=== PATIENT | male | born 1960 | race Caucasian/White ===

== ENCOUNTER → 2020-06-10 10:10 | Outpatient (REF) | payer MEDICARE, MEDICAID, SELFPAY ==
--- NOTE | 2020-06-10 10:16 | CA_ITS ---
Transthoracic Echocardiogram Patient (Last, First, Middle): Rc Wilson J Gender: Male Date of : 1960 Age: 60 Procedure Date: 06/10/2020 Procedure Type: Transthoracic Echocardiogram Location: OP Height: 175.26 cm Weight: 84.99 kg BSA: 2.01 m2 Heart Rate: bpm BP: 146 / 56 mmHg Echocardiography Tech: Referring MD: Diogo Rachel MD Symptoms: I50.9 - Heart failure, unspecified Study Quality: Good ECG Rhythm: Undetermined Conclusions: - The left ventricular systolic function is mildly decreased. The visually estimated ejection fraction is between 45-50%. - The left atrium is severely dilated. - There is moderate mitral annular calcification. There is mild mitral valve regurgitation. - There is mild tricuspid valve regurgitation. - Small generalized pericardial effusion but posterior to the left ventricle, moderate in size. Findings Procedure Information The patient declines contrast. Left Ventricle Normal left ventricular cavity size. There is moderately increased left ventricular wall thickness. The left ventricular systolic function is mildly decreased. The visually estimated ejection fraction is between 45-50%. There is mild global hypokinesis. Diastolic function is indeterminate on the basis of available data. Right Ventricle Normal right ventricular cavity size and systolic function. Atria The left atrium is severely dilated. The right atrium is normal in size. Aortic Valve There is a normal trileaflet aortic valve. There is no aortic valve stenosis. There is trace (trivial) aortic valve regurgitation. Mitral Valve There is moderate mitral annular calcification. There is mild mitral valve regurgitation. There is no mitral valve stenosis. Pulmonic Valve The pulmonic valve was not well visualized. There is trace pulmonic valve regurgitation. Tricuspid Valve Normal tricuspid valve structure. There is mild tricuspid valve regurgitation. The pulmonary artery systolic pressure is normal. Great Vessels The aortic annulus, sinuses of valsalva, asc aorta, and aortic arch are normal in size. Venous The inferior vena cava is normal in size and collapses greater than 50% with inspiration. Pericardium/Pleural There are no definitive echocardiographic findings of tamponade physiology. Small generalized pericardial effusion but posterior to the left ventricle, moderate in size. Prior Study Comparison Changes noted compared to prior study dated: 01/03/2020. Slight increase in size of pericardial effusion. Measurements 2D Linear Measurements RVIDd: 3.36 RVIDd Index: 1.67 IVSd: 1.45 0.6-0.9/0.6-1.0 cm LVIDd: 5.24 3.9-5.3/4.2-5.9 cm LVIDd Index: 2.61 2.4-3.2/2.2-3.1 cm/m2 LVIDs: 3.62 2.0-3.6 cm LVPWd: 1.44 0.7-1.1 cm Ao Root: 3.40 2.1-3.5 cm LA Diam: 4.70 2.7-3.8/3.0-4.0 cm LAIDs Index: 2.34 1.5-2.3 cm/m2 LV Mass: 409.23 67-162/88-224 g LV Mass Index: 203.60 43-95/49-115 g/m2 LVOT Diam: 2.10 3.0+(-)1.3 cm 2D Systolic Function EF 4C: 57.70 >55% EF 2C: 41.00 >55% EF BiP: 50.90 >55% Mitral Valve MV Pk E: 0.92 MV PK A: 1.25 MV Decel Time: 187.00 E/A: 0.70 PHT: 55.00 MVA PHT: 4.00 Decel Wayne: 4.91 MR Vol - PW Dopp: 31.16 MR VTI: 1.64 MR ERO: 19.00 MR Alias Rene: 0.43 MR RAD: 0.60 Aortic Valve AoV Pk Rene: 1.49 AoV Mn Rene: 1.23 AoV VTI: 0.24 AoV Pk Grad: 9.00 Aov Mn Grad: 6.00 COLBY Cont.VTI: 3.16 LVOT LVOT Pk Rene: 1.22 LVOT Mn Rene: 0.81 LVOT VTI: 0.22 LVOT Pk Grad: 6.00 LVOT Mn Grad: 3.00 LVOT Diam: 2.10 LVOT Area: 3.46 Diastolic Function MV Pk E: 0.92 MV Pk A: 1.25 E/A: 0.70 Tricuspid Valve TR Pk Rene: 2.76 TR Pk Grad: 30.00 RA Press: 3.00 RVSP: 33.00 Great Vessels Aorta Ao Root-2D: 3.40 2.0-3.7 cm Ao Asc: 3.50 2.1-3.4 cm Ao Arch: 3.30 Updated in Other Vendor System with Status of Final Alexis Gaspar MD electronically signed on 06/11/2020 11:55:58 AM with status of Final
== END ==
LOC: HO.CARD 10:10
PROVIDERS: Visit Provider Internal Medicine Cardiovascular Disease
DX: I50.9 Heart failure, unspecified (principal)
CPT/HCPCS: 93306

== ENCOUNTER → 2020-07-24 09:06 | Outpatient (BNVA) | payer OTHER, SELFPAY | PROVIDERS: Visit Provider Internal Medicine Cardiovascular Disease | DX: I25.5 Ischemic cardiomyopathy (principal); I25.10 Atherosclerotic heart disease of native coronary artery without angina pectoris; N18.6 End stage renal disease | CPT/HCPCS: 93005; 99212 ==

== ENCOUNTER → 2020-08-14 07:53 | Outpatient (REF) | payer OTHER, SELFPAY ==
--- NOTE | ~2020-08-14 | NM_ITS ---
Myocardial perfusion study Indication: Coronary artery disease to evaluate for myocardial ischemia Technique: The patient was brought in for a Lexiscan perfusion study on 08/14/2020. Patient performed low-level exercise and was injected 0.4 mg of Lexiscan intravenously. Within a minute of injection, 30 mCi of sestamibi was given intravenously. Images were obtained using the SPECT gamma camera interlaced with the gating device. Images were obtained in supine position. Resting perfusion study was performed on 08/19/2020. Patient was administered 30 mCi of sestamibi intravenously at rest. Images were then obtained in supine position. Images obtained with and without CT attenuation. Total DLP 75 mGy-cm. Images were processed with the software and compared side to side in short axis, horizontal long axis and vertical long axis views. Findings: The stress perfusion study showed non attenuated images show absent uptake in the basal inferior and severely reduced uptake in the mid inferior wall of the LV myocardium. Attenuation corrected images show normalized uptake in the inferior wall which could be overcorrection.. The gated study shows reduced LV systolic function with calculated LVEF of 44%. LV cavity is normal in size. The gated study shows absent wall thickening and contraction of basal inferior segments. Resting study shows no change in perfusion pattern compared to stress perfusion study. Gating at rest reveals inferior basal wall motion with ejection fraction at 46%. The findings are consistent with fixed basal inferior defect with wall motion abnormality suggesting prior myocardial infarction. There is no reversible ischemia.. NM/NM paddy perf SPECT rest & str Impression: 1. Myocardial perfusion imaging study shows no ischemia but basal inferior myocardial infarction, transmural 2. Gated LVEF is 46% 3. Transient ischemic dilatation not present EKG is nondiagnostic for ischemia
--- NOTE | 2020-08-14 07:51 | CA_ITS ---
Acquisition Time: 2020-08-14 09:05:36 Total Exercise Time: 00:02:00 Test Indications: Ischemia Evaluation Medications: ASA BUSPIRONE PLAVIX LACOSAMIDE ALIROCUMAB Protocol: LEXISCAN Max HR: 108 BPM 67% of Pred: 161 BPM Max BP: 136/068 mmHG Max Work Load: 1.0 METS Pharmacological stress test using Lexiscan while sitting and kicking his feet. Pt tolerated well, denies any anginal sx. Pt reports to be feeling very tired, sx reveresed with Aminophyline 75 mg IV. EKG with isolated PVC, non-diagnostic for ischemia. Nuclear images to follow. Normotensive response to test. Test reviewed with Dr. Gaspar. Referred By: Diogo Rachel Overread By: David Bennett
== END ==
LOC: HO.CARD 07:53
PROVIDERS: Visit Provider Internal Medicine Cardiovascular Disease
DX: I25.5 Ischemic cardiomyopathy (principal)
CPT/HCPCS: 78452; 93017; A9500; J0280; J2785

== ENCOUNTER → 2020-08-26 09:12 | Outpatient (REF) | payer OTHER, SELFPAY ==
--- NOTE | 2020-08-26 09:15 | CA_ITS ---
Transthoracic Echocardiogram Patient (Last, First, Middle): Rc Wilson J Gender: Male Date of : 1960 Age: 60 Procedure Date: 08/26/2020 Procedure Type: Transthoracic Echocardiogram Location: OP Height: 175.26 cm Weight: 88.45 kg BSA: 2.04 m2 Heart Rate: bpm BP: 125 / 61 mmHg Grease Monkey: DAVE Referring MD: Diogo Rachel MD Sandblast Carver: Maximo Thomas MD Symptoms: I31.3 - Pericardial effusion (noninflammatory) Study Quality: Fair ECG Rhythm: Sinus Conclusions: - Mild generalized pericardial effusion, moderate near the left ventricle with no evidence of tamponade Findings Left Ventricle The left ventricular systolic function is low normal. The visually estimated ejection fraction is between 50-55%. Spectral Doppler is indicative of an impaired relaxation filling pattern. Venous The inferior vena cava is normal in size and collapses greater than 50% with inspiration. Pericardium/Pleural There is a small circumferential pericardial effusion. There are no definitive echocardiographic findings of tamponade physiology. Moderate in severity localized to the left ventricle Measurements 2D Linear Measurements IVSd: 1.32 0.6-0.9/0.6-1.0 cm LVIDd: 5.28 3.9-5.3/4.2-5.9 cm LVIDd Index: 2.59 2.4-3.2/2.2-3.1 cm/m2 LVIDs: 3.56 2.0-3.6 cm LVPWd: 1.07 0.7-1.1 cm LV Mass: 316.18 67-162/88-224 g LV Mass Index: 154.99 43-95/49-115 g/m2 2D Systolic Function EF 4C: 50.90 >55% EF 2C: 53.90 >55% EF BiP: 51.50 >55% Mitral Valve MV Pk E: 0.97 MV PK A: 1.44 MV Decel Time: 269.00 E/A: 0.70 E'Lateral: 9.79 E'Medial: 3.48 E/E' Med: 27.70 E/E' Lat: 9.90 PHT: 79.00 MVA PHT: 2.78 Decel Hale: 3.58 Diastolic Function MV Pk E: 0.97 MV Pk A: 1.44 E/A: 0.70 E'Medial: 3.48 E/E' Med: 27.70 E' Laterial: 9.79 E/E' Lat: 9.90 Tricuspid Valve TR Pk Rene: 2.65 TR Pk Grad: 28.00 RA Press: 3.00 RVSP: 31.00 Updated in Other Vendor System with Status of Final Maximo Thomas MD electronically signed on 08/26/2020 11:05:51 AM with status of Final
== END ==
LOC: HO.CARD 09:12
PROVIDERS: PCP Internal Medicine; Visit Provider Internal Medicine Cardiovascular Disease
DX: I31.3 Pericardial effusion (noninflammatory) (principal)
CPT/HCPCS: 93308

== ENCOUNTER 2020-09-04 11:19 | Outpatient (REF) | payer OTHER, SELFPAY ==
[2020-09-04 12:11] LABS: Hematocrit 35.8 % (42-52); Hemoglobin 11.5 g/dl (14.0-18.0); Mean Corpuscular HGB Conc 32.1 g/dl (31.0-36.0); Mean Corpuscular Hemoglobin 31.8 pg (27.0-33.0); Mean Corpuscular Volume 98.9 fL (80-98); Platelet Count 166 X10*3/uL (160-400); Red Blood Count 3.62 X10*6/uL (4.60-5.80); White Blood Count 5.8 X10*3/uL (4.8-10.8)
[2020-09-04 12:16] LABS: Prothrombin Time 11.7 SEC (10.8-13.0)
[2020-09-04 13:02] LABS: Anion Gap 20 (12-20); Blood Urea Nitrogen 36 mg/dL (9-16); Calcium 9.2 mg/dL (8.4-10.2); Carbon Dioxide 30 mmol/L (22-29); Chloride 95 mmol/L (96-108); Estimated Glomerular Filt Rate 8; Glucose Random 101 mg/dL (60-115); Sodium 140 mmol/L (135-145)
== END 2020-09-04 11:20 | disposition home or self-care (01) ==
LOC: HO.LAB 11:19
PROVIDERS: PCP Internal Medicine; Visit Provider Internal Medicine Cardiovascular Disease
DX: I25.5 Ischemic cardiomyopathy (principal)
CPT/HCPCS: 36415; 80048; 85027; 85610

== ENCOUNTER → 2020-09-25 08:50 | Outpatient (BNVA) | payer OTHER, SELFPAY | PROVIDERS: PCP Internal Medicine; Visit Provider Internal Medicine Cardiovascular Disease | DX: I25.5 Ischemic cardiomyopathy (principal); I25.10 Atherosclerotic heart disease of native coronary artery without angina pectoris; I31.3 Pericardial effusion (noninflammatory); Z98.61 Coronary angioplasty status | CPT/HCPCS: 99212 ==

== ENCOUNTER → 2020-12-17 08:37 | Outpatient (REF) | payer OTHER, SELFPAY ==
--- NOTE | 2020-12-17 09:11 | CA_ITS ---
Transthoracic Echocardiogram Patient (Last, First, Middle): Rc Wilson J Gender: Male Date of : 1960 Age: 60 Procedure Date: 12/17/2020 Procedure Type: Transthoracic Echocardiogram Location: OP Height: 175.26 cm Weight: 86.18 kg BSA: 2.02 m2 Heart Rate: bpm BP: 142 / 70 mmHg Chainstitch Pants Outseamer: TRN Referring MD: Diogo Rachel MD Symptoms: I25.5 - Ischemic cardiomyopathy Study Quality: Fair ECG Rhythm: Sinus Conclusions: - The calculated ejection fraction is 52% by biplane method. - The basal inferior segment is akinetic. - Small circumferential pericardial effusion noted. However, posterior to the left ventricle, larger and measures up to 2.3 cm. Findings Left Ventricle Normal left ventricular cavity size. The left ventricular systolic function is low normal. The visually estimated ejection fraction is between 50-55%. The calculated ejection fraction is 52% by biplane method. Wall Motion Rest Echo Findings The basal inferior segment is akinetic. Venous The inferior vena cava is normal in size and collapses greater than 50% with inspiration. Pericardium/Pleural There are no definitive echocardiographic findings of tamponade physiology. Small circumferential pericardial effusion noted. However, posterior to the left ventricle, larger and measures up to 2.3 cm. Prior Study Comparison Changes noted compared to prior study dated: 08/26/2020. Increase in size of effusion posterior to LV. Measurements 2D Systolic Function EF 4C: 53.30 >55% EF 2C: 52.10 >55% EF BiP: 52.30 >55% Tricuspid Valve RA Press: 3.00 Updated in Other Vendor System with Status of Final Alexis Gaspar MD electronically signed on 12/18/2020 12:14:00 PM with status of Final
== END ==
LOC: HO.CARD 08:37
PROVIDERS: Visit Provider Internal Medicine Cardiovascular Disease
DX: I25.5 Ischemic cardiomyopathy (principal)
CPT/HCPCS: 93308

== ENCOUNTER → 2021-01-19 12:40 | Outpatient (BNVA) | payer OTHER, SELFPAY | PROVIDERS: PCP Internal Medicine; Referring Provider Internal Medicine; Visit Provider Internal Medicine Cardiovascular Disease | DX: Z01.810 Encounter for preprocedural cardiovascular examination (principal); I31.3 Pericardial effusion (noninflammatory); I25.10 Atherosclerotic heart disease of native coronary artery without angina pectoris; Z98.61 Coronary angioplasty status | CPT/HCPCS: 99212 ==

== ENCOUNTER → 2021-02-03 07:34 | Outpatient (REF) | payer OTHER, SELFPAY ==
--- NOTE | 2021-02-03 07:37 | CA_ITS ---
Transthoracic Echocardiogram Patient (Last, First, Middle): Rc Wilson J Gender: Male Date of : 1960 Age: 60 Procedure Date: 02/03/2021 Procedure Type: Transthoracic Echocardiogram Location: OP Height: 175.26 cm Weight: 90.72 kg BSA: 2.07 m2 Heart Rate: bpm BP: 122 / 60 mmHg High Value Associate: Referring MD: Diogo Rachel MD Symptoms: I31.3 - Pericardial effusion (noninflammatory) Study Quality: Fair ECG Rhythm: Sinus Conclusions: - Normal left ventricular size and systolic function. There is moderately increased left ventricular wall thickness. The visually estimated ejection fraction is between 55-60%. - The basal inferior segment is akinetic. - Posterior pericardial effusion with maximum measurement of 1.4 1.5 centimetre. Circumferential pericardial effusion which was noticed on last echocardiogram is not present anymore and only posterior pocket is noticed which is smaller than before. Findings Left Ventricle Normal left ventricular size and systolic function. There is moderately increased left ventricular wall thickness. The visually estimated ejection fraction is between 55-60%. There is evidence of regional wall motion abnormalities. Abnormal diastolic function is noted. Spectral Doppler is indicative of an impaired relaxation filling pattern. E/E prime ratio is >15, consistent with elevated filling pressures. Wall Motion Rest Echo Findings The basal inferior segment is akinetic. Right Ventricle Normal right ventricular cavity size and systolic function. Tricuspid Valve Normal right atrial pressure. Venous The inferior vena cava is normal in size and collapses greater than 50% with inspiration. Pericardium/Pleural There is a moderate loculated pericardial effusion overlying the left ventricle. Posterior pericardial effusion with maximum measurement of 1.4 1.5 centimetre. Circumferential pericardial effusion which was noticed on last echocardiogram is not present anymore and only posterior pocket is noticed which is smaller than before. Prior Study Comparison Changes noted compared to prior study dated: 12/17/2020. EF 55-60%. Improvement in pericardial effusion with posterior pocket measuring 1.4-1.5 cm with no circumferential effusion present now. Measurements 2D Linear Measurements IVSd: 1.31 0.6-0.9/0.6-1.0 cm LVIDd: 5.32 3.9-5.3/4.2-5.9 cm LVIDd Index: 2.57 2.4-3.2/2.2-3.1 cm/m2 LVIDs: 3.54 2.0-3.6 cm LVPWd: 1.36 0.7-1.1 cm LV Mass: 373.89 67-162/88-224 g LV Mass Index: 180.63 43-95/49-115 g/m2 2D Systolic Function EF 4C: 52.00 >55% EF 2C: 50.70 >55% Mitral Valve MV Pk E: 1.43 MV PK A: 1.47 MV Decel Time: 166.00 E/A: 1.00 E'Lateral: 8.16 E'Medial: 5.22 E/E' Med: 27.40 E/E' Lat: 17.50 PHT: 49.00 MVA PHT: 4.49 Decel Queens: 8.58 Diastolic Function MV Pk E: 1.43 MV Pk A: 1.47 E/A: 1.00 E'Medial: 5.22 E/E' Med: 27.40 E' Laterial: 8.16 E/E' Lat: 17.50 Updated in Other Vendor System with Status of Final Diogo Rachel MD electronically signed on 02/03/2021 2:13:00 PM with status of Final
== END ==
LOC: HO.CARD 07:34
PROVIDERS: Visit Provider Internal Medicine Cardiovascular Disease
DX: I31.3 Pericardial effusion (noninflammatory) (principal)
CPT/HCPCS: 93308

== ENCOUNTER 2021-04-27 09:27 | Emergency (ER) | payer OTHER, SELFPAY ==
--- NOTE | ~2021-04-27 | US_ITS ---
EXAMINATION: US VENOUS ULTRASOUND WITH DOPPLER LOWER EXTREMITY, LEFT CLINICAL INFORMATION: Pain behind left knee. Rule out DVT. COMPARISON: None TECHNIQUE: Ultrasound of the deep veins is performed from the hip to the calf with compression sonography and color and pulse Doppler assessment. Spectral analysis with color-flow imaging is performed. FINDINGS: The left common femoral, superficial femoral, profunda and posterior tibial and peroneal veins are patent. There is mild focal dilatation of the popliteal vein measuring up to 1.3 cm. There are prominent valve leaflets in the popliteal vein. There is an area in the popliteal vein that does not fill in with color flow adjacent to a valve. This is probably represents artifact from a thickened valve leaflet. It is difficult to exclude a small popliteal vein thrombus. Attempts were made to reimage the patient however he had signed himself out AMA. There is a 2.4 cm Villa's cyst. US/US venous duplex LE IMPRESSION: Question artifact in the popliteal vein related to thickened valve leaflet. It is difficult to exclude a small popliteal vein DVT. Short-term follow-up imaging in several days could be considered if clinically indicated. No other evidence of DVT. Small Villa's cyst. Findings were communicated to Jamil Ritchie by telephone on 04/27/2021 at 3:42 PM.
[2021-04-27 09:33] VITALS: BP 145/63; PULSE 92; RESP 18; TEMP 36.6; O2SAT 90; BMI 30.2
--- NOTE | 2021-04-27 11:14 | ED_ITS ---
HPI - General Adult General Chief complaint: General Medical Stated complaint: Blood clot l leg? Time Seen by Provider: 04/27/21 10:38 Source: patient Mode of arrival: ambulatory History of Present Illness HPI narrative: 61-year-old male with past medical history of smoker, polycystic kidney, ESRD on HD, recently admitted to [facility] for right-sided pneumonia and PE discharged on Eliquis and home O2 2.5-3L NC, presenting to the ED complaining left leg pain behind knee with concern of DVT since this morning. Reports chronic/unchanged SOB since pneumonia/PE diagnosis. Reports compliance with Eliquis. Denies fever, chills, cough, abdominal pain, nausea/vomiting, chest pain. Onset (ago): day(s) Related Data Home Medications Medication Instructions Recorded Confirmed buspirone 10 mg tablet 10 mg PO BID 07/24/20 04/16/21 lacosamide 100 mg tablet 100 mg PO BID tab 07/24/20 04/16/21 sevelamer carbonate 800 mg tablet 0 mg PO 07/24/20 04/16/21 tamsulosin 0.4 mg capsule 0.4 mg PO BEDTIME 07/24/20 04/16/21 clopidogrel 75 mg tablet (Plavix) 75 mg PO DAILY 09/25/20 04/16/21 albuterol sulfate 90 mcg/actuation 2 puff INHALATION Q6H PRN 04/16/21 04/16/21 aerosol inhaler apixaban 5 mg tablet (Eliquis) 5 mg PO BID 04/16/21 04/16/21 nicotine 21 mg/24 hr daily 1 patch TRANSDERMAL DAILY 04/16/21 04/16/21 transdermal patch Previous Rx's Medication Instructions Recorded metoprolol succinate 25 mg 25 mg PO DAILY #90 tab 10/03/20 tablet,extended release 24 hr Allergies Allergy/AdvReac Type Severity Reaction Status Date / Time oxycodone [Percocet] AdvReac Unknown itchy Verified 04/16/21 09:02 Review of Systems Review of Systems: Constitutional: No Fever, No Chills,No Fatigue, No Malaise ENT/Mouth: No Hearing loss, No Ear Pain, No sore throat Eyes: No Eye Pain, No Swelling, No Vision Changes Cardiovascular: No Chest Pain, No SOB, No Edema, No Palpitations Respiratory: No Cough, No Dyspnea Gastrointestinal: No Nausea, No Vomiting, No Diarrhea, No Constipation, No Abdominal pain Genitourinary: No Dysuria, No Hematuria, No Flank Pain, No Hesitancy Musculoskeletal: + joint pain, No Myalgias, No Joint Swelling Skin: No Skin Lesions, No rash Neuro: No Weakness, No Numbness, No Headache Yes all other systems are reviewed and are negative FOR[facility]LY [facility] Past Medical History Attestation statement: The following information was validated with the patient. Medical History (Updated 04/27/21 @ 18:11 by YEN Cornelius) Fistula Polycystic kidney disease Pulmonary embolism on right Surgical History History of ankle surgery History of brain surgery History of heart surgery History of hernia surgery Family History Family History Father Heart failure CVD (cardiovascular disease) Mother No problems noted. Brother Heart disease Sister Lung cancer Family/Other Cancer Social History Social History (Updated 01/19/21 @ 12:57 by Ashley Paul Stephenie) Alcohol intake: never Patient Tobacco Use Status: Current everyday Tobacco user Cigarette Packs Per Day: 1 Cigarettes Per Day: 20 Years Smoked: 50 Use of substances other than those prescribed or required for medical reasons: No Advance Directives: No Advance Directives Information Provided: No Physical Exam Vital Signs: Vital Signs: Last Vital Signs Temp 98.0 F 04/27/21 12:44 Pulse 90 04/27/21 12:44 Resp 14 04/27/21 12:44 BP 142/71 H 04/27/21 12:44 Pulse Ox 97 04/27/21 12:44 Body Mass Index 30.2 Const: General: cooperative, healthy appearing and no acute distress Ruel entation/consciousness: patient oriented x3 Limitations: no limitations HENMT: Head: Yes normal to inspection Ears: hearing grossly normal bilaterally General nose exam: Normal external nose present Face and sinus: Yes normal facial exam Eyes: General: appearance normal, both eyes and all related structures EOM: EOMs intact bilaterally Neck: Neck: Yes normal visual inspection Resp: Effort & Inspection: normal respiratory effort Auscultation: clear to auscultation bilaterally, no rales, no rhonchi and no wheezes Cardio: Rate: regular rate Heart sounds: S1 normal heart sound present and S2 normal heart sound present GI: Inspection: Yes normal to inspection Palpation (GI): Soft to palpation, nontender, no guarding and not rigid Skin: Rashes: no rashes Wounds: no wounds Neuro: General: patient oriented x3 Extrem: Other: +ttp behind L knee General: Yes normal to inspection, Yes no pedal edema and Yes no calf tenderness Course Course Course Narrative: -1430--patient eloped prior to ultrasound results -received call from Radiology, 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 It is difficult to exclude a small popliteal vein DVT. Short-term follow-up imaging in several days could be considered if clinically indicated. No other evidence of DVT. Small Villa's cyst. >> patient called back ED, discussed result, I recommended he return to ED for correct clarification imaging, patient states he is not returning to the ED tonight however does have pulmonology follow-up tomorrow and will be at the hospital and will bring it up with his umbrella tipper hand. Medical Decision Making MDM Narrative Medical decision making narrative: 61-year-old male with past medical history of smoker, polycystic kidney, ESRD on HD, recently admitted to [facility] for right-sided pneumonia and PE discharged on Eliquis and home O2 2.5-3L NC, presenting to the ED complaining left leg pain behind knee with concern of DVT since this morning. On exam satting 90% on RA, increased to 92% on 2.5L NC, lungs CTA, no appreciable pedal edema, tenderness behind left knee. Concern for possible DVT although patient is anticoagulated. Low concern for recurrent/new PE, patient's hypoxia is old, and why patient was discharged from [facility] with home O2(reports O2 was ranging in high 80s-90% at [facility]) Records were requested. Plan: Venous duplex ultrasound Discharge Plan Discharge Clinical Impression: Left knee pain Patient Disposition: Elopement Prescriptions: No Action metoprolol succinate 25 mg tablet extended release 24 hr 25 mg PO DAILY Qty: 90 RF: 2 Eliquis 5 mg tablet 5 mg PO BID RF: 0 nicotine 21 mg/24 hr patch 24 hour 1 patch transdermal DAILY RF: 0 albuterol sulfate 90 mcg/actuation HFA aerosol inhaler 2 puff inhalation Q6H PRNRF: 0 Vimpat 100 mg tablet 100 mg PO BID RF: 0 buspirone 10 mg tablet 10 mg PO BID RF: 0 tamsulosin 0.4 mg capsule 0.4 mg PO BEDTIME RF: 0 sevelamer carbonate 800 mg tablet 0 mg PO RF: 0 clopidogrel [Plavix] 75 mg tablet 75 mg PO DAILY RF: 0 Interventions: ED Discharge Assessment Last Done: 04/27/21 13:30 Discharge Date/Time: 04/27/21 13:30
[2021-04-27 12:44] VITALS: BP 142/71; PULSE 90; RESP 14; TEMP 36.7; O2SAT 97
== END 2021-04-27 13:30 | disposition left against medical advice (07) ==
PROVIDERS: Emergency Provider Emergency Medicine; PCP Internal Medicine
DX: M25.562 Pain in left knee (principal); M79.605 Pain in left leg; I26.99 Other pulmonary embolism without acute cor pulmonale; N18.6 End stage renal disease; Z79.01 Long term (current) use of anticoagulants; Z99.2 Dependence on renal dialysis; Z87.891 Personal history of nicotine dependence
CPT/HCPCS: 93971; 99284

== ENCOUNTER → 2021-04-28 10:20 | Outpatient (BNVA) | payer OTHER, SELFPAY | PROVIDERS: PCP Internal Medicine; Visit Provider Internal Medicine | DX: I26.99 Other pulmonary embolism without acute cor pulmonale (principal); J18.9 Pneumonia, unspecified organism; J44.9 Chronic obstructive pulmonary disease, unspecified; N18.6 End stage renal disease; F17.200 Nicotine dependence, unspecified, uncomplicated | CPT/HCPCS: 99202 ==

== ENCOUNTER 2021-05-12 09:53 | Outpatient (REF) | payer OTHER, SELFPAY ==
--- NOTE | ~2021-05-12 | XR_ITS ---
EXAMINATION: XR CHEST CLINICAL INFORMATION: COPD. History of pneumonia and pulmonary embolism. COMPARISON: Previous chest x-ray January 2012 TECHNIQUE: 2 views of the chest were obtained. FINDINGS: The cardiac silhouette is enlarged and appears increased in size from January 2012 exam. There is pulmonary venous redistribution, increased perihilar attenuation and small bilateral pleural effusions. Findings are suggestive of mild CHF. The aorta is calcified. There are degenerative changes of the spine. XR/XR chest 2V IMPRESSION: Mild CHF.
--- NOTE | 2021-05-12 13:48 | PFT_ITS ---
INDICATION: Dyspnea. SPIROMETRY: The FEV1 to FVC 76% with an FEV1 of 2.33 L, which is 67% predicted and an FVC of 3.08 L, which is 67% predicted. No significant response to bronchodilators noted. Maximum voluntary ventilation 80% predicted. LUNG VOLUMES: Total lung capacity 82% predicted with an expiratory reserve volume of 29% predicted. DIFFUSION CAPACITY: DLCO 40% predicted. COMPARISONS: None. INTERPRETATION: No obstructive nor restrictive ventilatory defects have been identified. No significant response to bronchodilators noted. Normal maximum voluntary ventilation. The patient has a low normal total lung capacity, and decrease in the expiratory reserve volume secondary to an elevated BMI. However, the patient has an adequate portion isolated severe diffusion impairment. Need to consider occult interstitial lung conditions and/or pulmonary vascular conditions. Clinical correlation warranted. Maykel Conrad MD MR/MODL / [id number]
== END 2021-05-12 09:54 | disposition home or self-care (01) ==
LOC: HO.RESP 09:53
PROVIDERS: PCP Internal Medicine; Visit Provider Internal Medicine
DX: J44.9 Chronic obstructive pulmonary disease, unspecified (principal); J18.9 Pneumonia, unspecified organism; I26.99 Other pulmonary embolism without acute cor pulmonale; F17.200 Nicotine dependence, unspecified, uncomplicated
CPT/HCPCS: 71046; 94060; 94727; 94729

== ENCOUNTER → 2021-06-04 09:35 | Outpatient (BNVA) | payer OTHER, SELFPAY | PROVIDERS: PCP Internal Medicine; Referring Provider Internal Medicine; Visit Provider Internal Medicine Cardiovascular Disease | DX: I26.99 Other pulmonary embolism without acute cor pulmonale (principal); J44.9 Chronic obstructive pulmonary disease, unspecified; N18.6 End stage renal disease; R04.2 Hemoptysis; I31.3 Pericardial effusion (noninflammatory); Z98.61 Coronary angioplasty status | CPT/HCPCS: 93005; 99212 ==

== ENCOUNTER → 2021-06-16 07:37 | Outpatient (REF) | payer OTHER, SELFPAY ==
--- NOTE | 2021-06-16 07:39 | CA_ITS ---
Transthoracic Echocardiogram Patient (Last, First, Middle): Rc Wilson J Gender: Male Date of : 1960 Age: 61 Procedure Date: 06/16/2021 Procedure Type: Transthoracic Echocardiogram Location: OP Height: 172.72 cm Weight: 87.01 kg BSA: 2.01 m2 Heart Rate: bpm BP: 118 / 60 mmHg Abattoir Supervisor: Referring MD: Diogo Rachel MD Swaging Machine Adjuster: Diogo Rachel MD Symptoms: I31.3 - Pericardial effusion (noninflammatory) Study Quality: Good ECG Rhythm: Sinus Conclusions: - Normal left ventricular size and systolic function. - Normal right ventricular cavity size and systolic function. - There is mild to moderate tricuspid valve regurgitation. Significantly elevated right atrial pressure. Severe pulmonary hypertension is present. - There is a circumferential pericardial effusion. There are no definitive echocardiographic findings of tamponade physiology. The pericardial effusion is overall small in size but there is a moderate pocket posteriorly or 1.7 cm. The pericardial effusion has fluctuated in the past and usually it is the worst posteriorly. Findings Left Ventricle Normal left ventricular size and systolic function. There is moderately increased left ventricular wall thickness. The visually estimated ejection fraction is between 55-60%. There is no evidence of regional wall motion abnormalities. Diastolic function is indeterminate on the basis of available data. Right Ventricle Normal right ventricular cavity size and systolic function. Mitral Valve There is moderate mitral annular calcification. Tricuspid Valve Normal tricuspid valve structure. There is mild to moderate tricuspid valve regurgitation. Significantly elevated right atrial pressure. Severe pulmonary hypertension is present. Venous The inferior vena cava is dilated and collapses less than 50% with inspiration. Pericardium/Pleural There is a circumferential pericardial effusion. There are no definitive echocardiographic findings of tamponade physiology. The pericardial effusion is overall small in size but there is a moderate pocket posteriorly or 1.7 cm. The pericardial effusion has fluctuated in the past and usually it is the worst posteriorly. Prior Study Comparison Changes noted compared to prior study dated: 02/03/2021. Severe pulmonary hypertension is present. Measurements 2D Linear Measurements IVSd: 1.45 0.6-0.9/0.6-1.0 cm LVIDd: 5.36 3.9-5.3/4.2-5.9 cm LVIDd Index: 2.67 2.4-3.2/2.2-3.1 cm/m2 LVIDs: 3.54 2.0-3.6 cm LVPWd: 1.40 0.7-1.1 cm LV Mass: 415.37 67-162/88-224 g LV Mass Index: 206.65 43-95/49-115 g/m2 Tricuspid Valve TR Pk Rene: 3.58 TR Pk Grad: 51.00 RVSP: 65.00 Updated in Other Vendor System with Status of Final Diogo Rachel MD electronically signed on 06/17/2021 1:26:52 PM with status of Final
== END ==
LOC: HO.CARD 07:37
PROVIDERS: PCP Internal Medicine; Visit Provider Internal Medicine Cardiovascular Disease
DX: I31.3 Pericardial effusion (noninflammatory) (principal)
CPT/HCPCS: 93308

== ENCOUNTER 2021-07-07 09:41 | Outpatient (REF) | payer OTHER, SELFPAY ==
--- NOTE | ~2021-07-07 | CT_ITS ---
EXAMINATION: CT CHEST WITHOUT CONTRAST CLINICAL INFORMATION: Nicotine dependence COMPARISON: Previous chest x-ray May 2021 TECHNIQUE: Multidetector volumetric CT imaging of the chest was done. Axial MIP volume rendering provided. Sagittal and coronal reformatted images were obtained. This CT examination was performed using dose optimization techniques as appropriate, variously including the following: *Automated exposure control *Adjustment of mA and/or kV according to patient size (this includes techniques or standardized protocols for targeted exams where dose is matched to indication/reason for exam; i.e. extremities or head) *Use of iterative reconstruction technique DLP: 225 mGy-cm FINDINGS: LUNGS: There is evidence of severe emphysema. No pulmonary mass or nodule. MEDIASTINUM: The heart is enlarged. There is a small pericardial effusion. There is severe coronary artery calcification. There are small mediastinal lymph nodes. No enlarged lymph nodes are seen. PLEURA: There is a moderate right and small left pleural effusion. AXILLA: No lymphadenopathy. UPPER ABDOMEN: There are multiple liver cysts. The kidneys appear enlarged and essentially replaced with probable complex and simple cysts suggestive of polycystic kidney disease. There is a 3 cm high attenuation lesion exophytic to the upper pole of the left kidney the splenic hilum questionable for cyst versus mass. Follow-up imaging of the kidneys is recommended. There is a small calcification in the spleen. OSSEOUS STRUCTURES: There are degenerative changes of the spine and shoulders. CT/CT chest wo con IMPRESSION: Severe emphysema. Enlarged heart, small pericardial effusion and bilateral pleural effusions, right greater than left. Severe coronary artery calcification. Probable polycystic kidney disease. Dedicated renal imaging recommended. Multiple liver cysts. Fleischner guidelines were followed. Findings will be communicated by the [place] work flow oxygen equipment aide Mirlande.
== END 2021-07-07 09:42 | disposition home or self-care (01) ==
LOC: HO.CT 09:41
PROVIDERS: Visit Provider Internal Medicine
DX: J18.9 Pneumonia, unspecified organism (principal); R04.2 Hemoptysis; F17.200 Nicotine dependence, unspecified, uncomplicated
CPT/HCPCS: 71250

== ENCOUNTER → 2021-08-06 10:16 | Outpatient (BNVA) | payer OTHER, SELFPAY | PROVIDERS: PCP Internal Medicine; Visit Provider Internal Medicine | DX: J44.9 Chronic obstructive pulmonary disease, unspecified (principal); F17.210 Nicotine dependence, cigarettes, uncomplicated; I26.99 Other pulmonary embolism without acute cor pulmonale; J18.9 Pneumonia, unspecified organism; G47.34 Idiopathic sleep related nonobstructive alveolar hypoventilation | CPT/HCPCS: 99212 ==

== ENCOUNTER → 2021-09-10 09:37 | Outpatient (BNVA) | payer OTHER, SELFPAY | PROVIDERS: PCP Internal Medicine; Referring Provider Internal Medicine; Visit Provider Internal Medicine Cardiovascular Disease | DX: I27.20 Pulmonary hypertension, unspecified (principal); I31.3 Pericardial effusion (noninflammatory); I25.10 Atherosclerotic heart disease of native coronary artery without angina pectoris | CPT/HCPCS: 99212 ==

== ENCOUNTER → 2021-10-29 09:47 | Outpatient (BNVA) | payer OTHER, SELFPAY | PROVIDERS: PCP Internal Medicine; Visit Provider Internal Medicine | DX: J44.9 Chronic obstructive pulmonary disease, unspecified (principal); I27.20 Pulmonary hypertension, unspecified; G47.34 Idiopathic sleep related nonobstructive alveolar hypoventilation; F17.210 Nicotine dependence, cigarettes, uncomplicated; Z99.81 Dependence on supplemental oxygen | CPT/HCPCS: 99212 ==

== ENCOUNTER → 2022-02-25 09:03 | Outpatient (REF) | payer OTHER, SELFPAY ==
--- NOTE | 2022-02-25 09:14 | CA_ITS ---
Transthoracic Echocardiogram Patient (Last, First, Middle): Rc Wilson J Gender: Male Date of : 1960 Age: 61 Procedure Date: 02/25/2022 Procedure Type: Transthoracic Echocardiogram Location: OP Height: 172. cm Weight: 85. kg BSA: 1.98 m2 Heart Rate: 95 bpm BP: 132 / 62 mmHg Support Dba: SUZY Briggs MD: BELIA LEMOS Web Production Designer: Maximo Thomas MD Symptoms: I27.20 - Pulmonary hypertension, unspecified Study Quality: Adequate ECG Rhythm: Sinus Conclusions: - 1. Low normal LV systolic function with pseudonormal filling pattern with mild LVH 2. Moderately dilated left atrium 3. Severe mitral calcification probably moderate mitral stenosis and [id number] mitral regurgitation 4. Gcya-[id number] tricuspid regurgitation with severely elevated right ventricular systolic pressure and severely elevated right atrial pressures 5. Moderate to large pericardial effusion more prominent posterior to left ventricle with difficult to evaluate tamponade physiology. Clinical correlation suggested Findings Left Ventricle Normal left ventricular cavity size. There is mildly increased left ventricular wall thickness. The left ventricular systolic function is low normal. The visually estimated ejection fraction is between 50-55%. There is a flattened septum in systole consistent with right ventricular pressure overload. Spectral Doppler is indicative of a pseudonormal filling pattern. Right Ventricle Normal right ventricular cavity size. There is normal right ventricular systolic function. There is mildly increased right ventricular wall thickness. Atria The left atrium is moderately dilated. There is lipomatous hypertrophy of the interatrial septum. There is no evidence of interatrial shunt. The right atrium is mildly dilated. Aortic Valve There is mild calcification of the aortic valve. There is mild thickening of the aortic valve. There is no aortic valve stenosis. There is no aortic valve regurgitation. Mitral Valve There is moderate anterior and severe posterior mitral leaflet thickening. There is severe mitral annular calcification. There is mild to moderate mitral valve regurgitation. There is moderate mitral valve stenosis. Tricuspid Valve Normal tricuspid valve structure. There is mild to moderate tricuspid valve regurgitation. Significantly elevated right atrial pressure. Severe pulmonary hypertension is present. Great Vessels The pulmonary artery was not well visualized. There is mild dilatation of the ascending aorta measuring 4.00 cm. Venous The inferior vena cava is severely dilated and does not collapse with inspiration. Pericardium/Pleural There is a large loculated pericardial effusion overlying the left ventricle. No discernable variation of the mitral valve Doppler velocities with respiration. Prior Study Comparison Changes noted compared to prior study dated: 06/16/2021. Pericardial effusion is worse, more severe posteriorly to the left ventricle with significantly elevated right atrial pressures. Cannot completely rule out tamponade physiology. I was requested to read this study on 03/02/2022 Measurements 2D Linear Measurements IVSd: 1.36 0.6-0.9/0.6-1.0 cm LVIDd: 5.35 3.9-5.3/4.2-5.9 cm LVIDd Index: 2.70 2.4-3.2/2.2-3.1 cm/m2 LVIDs: 3.64 2.0-3.6 cm LVPWd: 1.57 0.7-1.1 cm LA Diam: 5.30 2.7-3.8/3.0-4.0 cm LAIDs Index: 2.68 1.5-2.3 cm/m2 LV Mass: 431.11 67-162/88-224 g LV Mass Index: 217.73 43-95/49-115 g/m2 LVOT Diam: 2.10 3.0+(-)1.3 cm 2D Systolic Function EF 4C: 56.30 >55% EF 2C: 38.00 >55% Mitral Valve MV VTI: 0.41 MV Pk Rene: 1.88 MV Mn Rene: 1.39 MV Pk Grad: 14.00 MV Mn Grad: 9.00 MV Pk E: 1.90 MV PK A: 1.61 MV Decel Time: 217.00 E/A: 1.20 E'Lateral: 12.10 E'Medial: 6.20 E/E' Med: 30.60 E/E' Lat: 15.70 PHT: 63.00 MVA Continuity: 1.59 Decel [place]: 8.76 MR Vol - PW Dopp: 21.48 MR VTI: 1.79 MR ERO: 12.00 MR Alias Rene: 0.34 MR RAD: 0.60 Aortic Valve AoV Pk Rene: 1.40 AoV Mn Rene: 1.02 AoV VTI: 0.27 AoV Pk Grad: 8.00 Aov Mn Grad: 5.00 COLBY Cont.VTI: 2.42 LVOT LVOT Pk Rene: 0.97 LVOT Mn Rene: 0.73 LVOT VTI: 0.19 LVOT Pk Grad: 4.00 LVOT Mn Grad: 2.00 LVOT Diam: 2.10 LVOT Area: 3.46 Diastolic Function MV Pk E: 1.90 MV Pk A: 1.61 E/A: 1.20 E'Medial: 6.20 E/E' Med: 30.60 E' Laterial: 12.10 E/E' Lat: 15.70 Right Ventricle TAPSE (mm): 23.40 TVS' Rene: 14.30 Tricuspid Valve TR Pk Rene: 3.57 TR Pk Grad: 51.00 RA Press: 15.00 RVSP: 66.00 Great Vessels Aorta Sinus of Valsalva: 3.80 2.0-3.5 cm Ao Asc: 4.00 2.1-3.4 cm Pulmonary Valve PV Pk Rene: 0.94 Peak PV Grad: 4.00 Updated in Other Vendor System with Status of Final Maximo Thomas MD electronically signed on 03/02/2022 4:24:22 PM with status of Final
== END ==
LOC: HO.CARD 09:03
PROVIDERS: PCP Internal Medicine; Visit Provider Internal Medicine Cardiovascular Disease
DX: I27.20 Pulmonary hypertension, unspecified (principal)
CPT/HCPCS: 93306

== ENCOUNTER → 2022-03-03 10:05 | Outpatient (BNVA) | payer OTHER, SELFPAY | PROVIDERS: PCP Internal Medicine; Referring Provider Internal Medicine; Visit Provider Internal Medicine Cardiovascular Disease | DX: I31.3 Pericardial effusion (noninflammatory) (principal); I27.20 Pulmonary hypertension, unspecified; I25.10 Atherosclerotic heart disease of native coronary artery without angina pectoris; I50.9 Heart failure, unspecified; N18.6 End stage renal disease | CPT/HCPCS: 93005; 99212 ==

== ENCOUNTER → 2022-03-05 09:31 | Outpatient (BNVA) | payer OTHER, SELFPAY | PROVIDERS: PCP Internal Medicine; Visit Provider Surgery | DX: I31.3 Pericardial effusion (noninflammatory) (principal) | CPT/HCPCS: 99202 ==

== ENCOUNTER → 2022-06-16 10:28 | Outpatient (BNVA) | payer OTHER, SELFPAY | PROVIDERS: PCP Internal Medicine; Visit Provider Internal Medicine Cardiovascular Disease | DX: I50.9 Heart failure, unspecified (principal); I25.10 Atherosclerotic heart disease of native coronary artery without angina pectoris; I26.99 Other pulmonary embolism without acute cor pulmonale; N18.6 End stage renal disease; Z79.01 Long term (current) use of anticoagulants; Z99.2 Dependence on renal dialysis; Z90.5 Acquired absence of kidney | CPT/HCPCS: 99212 ==

== ENCOUNTER → 2022-10-11 09:05 | Outpatient (BNVA) | payer OTHER, SELFPAY | PROVIDERS: PCP Internal Medicine; Referring Provider Internal Medicine; Visit Provider Internal Medicine Cardiovascular Disease | DX: I25.5 Ischemic cardiomyopathy (principal); I50.9 Heart failure, unspecified | CPT/HCPCS: 93005; 99212 ==

== ENCOUNTER 2023-02-14 09:48 | Outpatient (AMB) | payer OTHER, SELFPAY ==
[2023-02-14 09:59] VITALS: BP 102/52; PULSE 88; BMI 24.9
--- NOTE | 2023-02-14 09:59 | MHC.OFFVIS ---
Intake Vital Signs 02/14/23 09:59 Height 5 ft 8 in Weight 163 lb 9.328 oz BMI 24.9 BP 102/52 L Blood Pressure Location Lt brachial Position Sitting Pulse 88 Pulse Source Pulse Oximeter Intake Visit Reasons: 4 month follow-up Intake Note: 4 month follow up. Horse Rancher Required: No Accompanied by: Self / Same As Patient Allergies oxycodone [Percocet] Adverse Reaction (Unknown, Verified 02/14/23 10:01) itchy Medication List - Last Reconciled 02/14/23 by Diogo Rachel MD albuterol sulfate 90 mcg/actuation 2 puffs inhalation Q6H PRN apixaban (Eliquis) 5 mg PO BID buspirone 10 mg PO DAILY clopidogrel 75 mg PO DAILY lacosamide 100 mg PO ONCE lanthanum 500 mg PO TID lorazepam 1 mg PO TID PRN metoprolol tartrate 25 mg PO DAILY midodrine 10 mg PO DAILY PRN sodium zirconium cyclosilicate (Lokelma) grams PO PRN HPI HPI Comments History of Present Illness Details Background: Here for follow up. He moved from [place] to [place] because he lost insurance there after a foot injury. He was on a transplant list there for ESRD. He was seen at [facility] and unfortunately due to significant vascular calcification he was deemed not a candidate for renal transplant. He is on HD 3 times a week. He had previous LCx and RCA [employer] PCI. His symptoms were chest pressure before PCI. He has bilateral hip pain and he has been told that he may have avascular necrosis. He is seeing Dr Lonny Adam for vascular disease in lower extremities.. He had episodes of shortness of breath which was thought to be volume issue and was optimized with the hemodialysis. Subsequent to that his echocardiography showed mildly reduced ejection fraction of 40-45%. After discussion with him he was taken for cardiac catheterization. This showed severe InStent restenoses of the right coronary artery in the proximal and distal segments. This was quite complex to work on due to significant calcification as well as multiple stents in the RCA. We were able to do successful angioplasty of the distal and proximal segment. Proximal segment has a lot of calcium around the stent and did not expand very well. He was started on aspirin Plavix and his cilastazole was stopped because of risk of bleeding as well as is episode of congestive heart failure. he also had admission at [facility] with pneumonia and at the same time was diagnosed pulmonary embolism. He was started on apixaban. He had pericardial effusion which is chronic and fluctuates between small to moderate. As off June he had a small circumferential pericardial effusion which is moderate posteriorly. No tamponade physiology has been demonstrated before. His echocardiography are after pulmonary embolism has shown severe pulmonary hypertension in addition to other findings. He denies chest pains. He is short of breath. He continues to smoke 1 pack per day. He is saying he has been smoking since he moved to [place] from [place]. He has abdominal aortic aneurysm and is seeing Dr. Ashley Silva at [facility]. Today he returns for follow-up. He had polycystic kidneys which were causing significant pressure as they were occupying most of his abdominal cavity. After discussion he underwent bilateral nephrectomy. He had pericardial effusion which was moderate to large in size and he had pericardiocentesis before surgery. He had repeat echocardiogram at [facility] after the pericardiocentesis which showed that there was no re-collection. He also had a repeat echocardiogram later on in April which showed a large left-sided pleural effusion for which he underwent thoracentesis. It appears his surgical course was quite complicated because there was injury to his gallbladder leading to biliary leak and abscess formation. He had drainage of that and ERCP and stent placement. He also has been in and out of hospitals with shortness of breath and has been told that he had pneumonia as well as significant volume overload and heart failure. He has lost significant weight and looks very thin. 02/14/23: He returns for follow-up. He has been following with vascular surgery at [facility] with abdominal aortic aneurysm. He head CT scan previously which showed 5.5 cm abdominal aortic aneurysm. He was being considered for repair. I had a detailed discussion with his vascular surgeon at [facility]. He apparently had echocardiography performed which showed moderate mitral regurgitation, severe pulmonary hypertension, moderate severe RV dilation with septal flattening in systole and diastole pointing to RV pressure volume overload. Given his RV dysfunction and inability to tolerate hypovolemia my concerns were that if he had blood loss or hypotension related to anesthesia during the procedure then he may not tolerate it and there is a possibility can get very sick doing the procedure. Due to these reasons we decided to observe him closely and not perform abdominal aortic aneurysm repair. His AAA currently is stable based on ultrasound performed on 02/10/2023. He has fatigue and shortness of breath. He is saying 1 days of worse today because he has without dialysis for 2 days and usually go to dialysis for Tuesday, and Tuesday. He has severe pulmonary hypertension by echocardiography performed in December 2022. I think the pulmonary hypertension is multifactorial in him due to left heart disease and previous pulmonary embolism. Given RV dilation without dysfunction my concerns are that he needs specialize pulmonary hypertension input and I discussed this with him that potentially should be seen in [place] by a pulmonary hypertension specialist. [facility] Medical History Anxiety COPD (chronic obstructive pulmonary disease) Fistula Hemoptysis Nocturnal hypoxemia Polycystic kidney disease Pulmonary embolism on right Smoker Smoker Surgical History History of ankle surgery History of brain surgery History of heart surgery History of hernia surgery History of nephrectomy, left History of nephrectomy, right Family History Father Heart failure CVD (cardiovascular disease) Mother No problems noted. Brother Heart disease Sister Lung cancer Family/Other Cancer Social History Housing: House Alcohol intake: current Alcohol intake frequency: holidays/special occasions only Patient Tobacco Use Status: Current everyday Tobacco user Cigarette Packs Per Day: 1 Cigarettes Per Day: 20 Years Smoked: 50 +/- e-Cigarette/Vaping Use: Never Used Second Hand Smoke Exposure: No service: No Current occupational status: disabled Current occupational exposures/hazards: No Cognitive needs: No Hearing needs: No Vision needs: No Review of Systems Const Denies weakness ENT Denies dizziness Card Denies chest pain, Denies chest pain with activity, Denies syncope, Denies rapid heart rate, Denies pedal edema, Denies edema, Denies leg edema, Denies lightheadedness, Denies palpitations, Denies dyspnea, Denies dyspnea on exertion and Denies orthopnea Resp Denies cough, Denies dyspnea and Denies dyspnea on exertion GI Denies hematochezia and Denies change in stool character Musc Denies abnormal gait, Denies muscle cramps, Denies muscle weakness, Denies numbness, Denies radiating pain into limb and Denies tingling Neuro Denies abnormal gait, Denies dizziness, Denies syncope, Denies numbness, Denies tingling and Denies weakness Endo Denies palpitations Physical Exam Vital Signs: Last Vital Signs Pulse 88 02/14/23 09:59 BP 102/52 L 02/14/23 09:59 BMI result Body Mass Index 24.9 GENERAL APPEARANCE: in no acute distress, thin and ill appearing. NECK/THYROID: Mild JVD SKIN: normal. HEART: S1, S2 normal, grade 2/6 systolic murmur in the aortic area, holosystolic murmur at the apex. LUNGS: clear to auscultation bilaterally. ABDOMEN: soft, nontender, nondistended. Pulsatile liver. EXTREMITIES: No edema. Left upper extremity fistula with normal thrill and bruit. PERIPHERAL PULSES: equal. NEUROLOGIC: alert and oriented, nonfocal. Results Reviewed Results Reviewed: Aortoiliac duplex performed 02/10/2023 showing normal aortic aneurysm 5.3 x 5.4 x 5.1 cm. Previously was 5.[address] scan. Elevated velocities in the right common iliac, external iliac and common femoral artery. ECHO performed 12/24/2022 at [facility] showing normal LVEF of 60 65% with no obvious wall motion abnormalities. There is mild flattening of the interventricular septum during systole and diastole consistent with right ventricular pressure and volume overload. Moderate mitral valve regurgitation. Calcific mitral valve stenosis with a mean gradient across mitral valve 8 mm Hg and 92 beats per minute. The right ventricle is moderate to severely dilated. Right ventricular function appears preserved. Severe pulmonary hypertension with PASP of 70 mm Hg. Assessment & Plan Assessment & Plan (1) Pulmonary hypertension: Code(s): I27.20 - Pulmonary hypertension, unspecified (2) CHF (congestive heart failure): Code(s): I50.9 - Heart failure, unspecified (3) CAD (coronary artery disease): Comment: As above Code(s): I25.10 - Atherosclerotic heart disease of [place] coronary artery without angina pectoris Qualifiers: Coronary Disease-Associated Artery/Lesion type: [place] artery [place] vs. transplanted heart: [place] heart Associated angina: without angina Qualified Code(s): I25.10 - Atherosclerotic heart disease of [place] coronary artery without angina pectoris Plan [age] year gentleman who has complex medical issues including hemodialysis, pulmonary hypertension, RV dilation, previous coronary artery disease with PCI, polycystic kidney status post resection, abnormal aortic aneurysm and mitral regurgitation. He has moderate MR by echocardiography recently. He has severe pulmonary hypertension and RV dilation at this point. There is no RV dysfunction based on echocardiography done in December 2022 at [facility]. His pulmonary artery systolic pressures were 70s. He previously had pulmonary emboli and has been on apixaban. He has a left arm fistula for hemodialysis. He is requiring midodrine with dialysis because his blood pressure drops on the machine. There is still able to fully couple of Liter of fluid as per the patient. He has abdominal aortic aneurysm but currently after discussion with vascular surgery we have decided to monitored closely. As of February 2023, his ultrasound has shown stable and rhythm with no change in size. I am referring him to Pulmonary Medicine for pulmonary hypertension with a plan of pharyngeal referral to [place] for further assessment. He has moderate mitral regurgitation, previous PE and some degree of diastolic dysfunction present which can explain the pulmonary hypertension. Given moderate severe RV dilation and requirement for midodrine with hemodialysis my concerns are that if his RV continues to worsens in function he may not be able to tolerate hemodialysis which will be very challenging situation for him. He previously has been deemed not a transplant candidate. I am stopping his metoprolol tartrate. We will follow along with you. Thank you for allowing me to participate in the care of your patient. Please feel free to contact me if you have any questions. Orders: Referrals Pulmonary Medicine Referral I27.20 - Pulmonary hypertension, unspecified Medications: Discontinued metoprolol tartrate Discontinued Reason: None 25 mg PO DAILY 90 tabs 3RF Coding Level of Care Code Procedure Only Diagnoses Pulmonary hypertension I27.20 CHF (congestive heart failure) I50.9 CAD (coronary artery disease) I25.10 Coronary Disease-Associated Artery/Lesion type: [place] artery [place] vs. transplanted heart: [place] heart Associated angina: without angina
== END 2023-02-14 10:29 | disposition home or self-care (01) ==
PROVIDERS: PCP Internal Medicine; Referring Provider Internal Medicine; Visit Provider Internal Medicine Cardiovascular Disease
DX: I27.20 Pulmonary hypertension, unspecified (principal); I50.9 Heart failure, unspecified; I25.10 Atherosclerotic heart disease of native coronary artery without angina pectoris
CPT/HCPCS: 99203

== ENCOUNTER → 2023-02-14 09:48 | Outpatient (BNVA) | payer OTHER, SELFPAY | PROVIDERS: PCP Internal Medicine; Referring Provider Internal Medicine; Visit Provider Internal Medicine Cardiovascular Disease | DX: I27.20 Pulmonary hypertension, unspecified (principal); I25.10 Atherosclerotic heart disease of native coronary artery without angina pectoris; I11.0 Hypertensive heart disease with heart failure; I50.9 Heart failure, unspecified; F17.210 Nicotine dependence, cigarettes, uncomplicated; Z95.5 Presence of coronary angioplasty implant and graft; Z99.2 Dependence on renal dialysis; Z79.01 Long term (current) use of anticoagulants | CPT/HCPCS: 99202 ==

== ENCOUNTER → 2023-02-16 15:39 | Outpatient (BNVA) | payer OTHER, SELFPAY | PROVIDERS: PCP Internal Medicine; Visit Provider Internal Medicine ==